=== PATIENT | female | born 1975 | race Caucasian/White ===

== ENCOUNTER 2018-07-09 15:30 | Observation (INO) | payer SELFPAY ==
[2018-07-09] MEDS ORDERED: ASPIRIN 81 MG TABLET, CHEWABLE PO ONE (15:56)
--- NOTE | 2018-07-09 15:58 | ER Document Report ---
ED Medical Screen (RME) - General Chief Complaint: Chest Pain Stated Complaint: CHEST PAIN Time Seen by Provider: 07/09/18 15:51 Notes: 42 years old female presents today with chest wall pain particularly over the right side of the chest wall for the last 2-3 weeks more so today. Radiating to the right side of the neck and left shoulder pain left arm numbness. Denies any history of anxiety, denies any stress. Chest wall tenderness noted at the right lower costosternal region TRAVEL OUTSIDE OF THE [place] IN LAST 30 DAYS: No - Related Data Allergies/Adverse Reactions: No Known Allergies Allergy (Verified 07/09/18 15:31) Past Medical History - Social History Frequency of alcohol use: None Drug Abuse: None - Past Medical History Cardiac Medical History: Reports: Hx Hypertension Renal/ Medical History: Denies: Hx Peritoneal Dialysis Past Surgical History: Reports: Hx Hysterectomy Physical Exam - Vital signs Vitals: Temp Pulse Resp BP Pulse Ox 98.6 F 109 H 16 144/84 H 99 07/09/18 15:45 07/09/18 15:45 07/09/18 15:45 07/09/18 15:45 07/09/18 15:45 Course - Vital Signs Vital signs: Temp Pulse Resp BP Pulse Ox 98.6 F 109 H 16 144/84 H 99 07/09/18 15:45 07/09/18 15:45 07/09/18 15:45 07/09/18 15:45 07/09/18 15:45 Doctor's Discharge - Discharge Referrals: LOCALMD,NO [Primary Care Provider] - Follow up as needed
--- NOTE | 2018-07-09 16:28 | RADIOLOGY REPORT (SQ) ---
EXAM DESCRIPTION: CHEST SINGLE VIEW COMPLETED DATE/TIME: 07/09/2018 4:18 pm REASON FOR STUDY: Chest pain COMPARISON: None. EXAM PARAMETERS: NUMBER OF VIEWS: One view. TECHNIQUE: Single frontal radiographic view of the chest acquired. RADIATION DOSE: NA LIMITATIONS: None. FINDINGS: LUNGS AND PLEURA: No opacities, masses or pneumothorax. No pleural effusion. MEDIASTINUM AND HILAR STRUCTURES: No masses. Contour normal. HEART AND VASCULAR STRUCTURES: Heart normal in size. Normal vasculature. BONES: Scoliosis. HARDWARE: None in the chest. OTHER: No other significant finding. IMPRESSION: Scoliosis. No acute findings in the chest. TECHNICAL DOCUMENTATION: JOB ID: [id number] [email or web address]- All Rights Reserved Reading location - IP/workstation name: [email or web address]
[2018-07-09 16:38] LABS: ABSOLUTE BASOPHILS # (AUTO) 0.1 10^3/uL (0.0-0.2); ABSOLUTE EOSINOPHILS # (AUTO) 0.1 10^3/uL (0.0-0.6); ABSOLUTE LYMPHOCYTES (AUTO) 3.4 10^3/uL (0.5-4.7); ABSOLUTE MONOCYTES (AUTO) 0.5 10^3/uL (0.1-1.4); ABSOLUTE NEUT (AUTO) 5.8 10^3/uL (1.7-8.2); BASOPHILS % (AUTO) 0.9 % (0-2); EOSINOPHILS % (AUTO) 0.8 % (0-6); HEMATOCRIT 43.3 % (36.0-47.0); HEMOGLOBIN 15.2 g/dL (12.0-15.5); LYMPHOCYTES % (AUTO) 34.4 % (13-45); MEAN CORPUSCULAR HGB CONC 35.1 g/dL (32.0-36.0); MEAN CORPUSCULAR VOLUME 97 fl (80-97); PLATELET COUNT 330 10^3/uL (150-450); RED BLOOD COUNT 4.48 10^6/uL (3.72-5.28); RED CELL DISTRIBUTION WIDTH 13.3 % (11.5-14.0); SEGMENTED NEUTROPHILS % (AUTO) 58.9 % (42-78); TOTAL CELLS COUNTED % (AUTO) 100 %; WHITE BLOOD COUNT 9.9 10^3/uL (4.0-10.5)
[2018-07-09 17:00] LABS: ALANINE AMINOTRANSFERASE 35 U/L (9-52); ALBUMIN 4.8 g/dL (3.5-5.0); ALKALINE PHOSPHATASE 69 U/L (38-126); ANION GAP 14 (5-19); ASPARTATE AMINO TRANSFERASE 31 U/L (14-36); BILIRUBIN,DIRECT 0.2 mg/dL (0.0-0.4); BILIRUBIN,TOTAL 0.4 mg/dL (0.2-1.3); BLOOD UREA NITROGEN 13 mg/dL (7-20); CALCIUM 9.8 mg/dL (8.4-10.2); CARBON DIOXIDE 28 mmol/L (22-30); CHLORIDE 102 mmol/L (98-107); CREATINE KINASE 90 U/L (30-135); GLUCOSE 83 mg/dL (75-110); POTASSIUM 4.2 mmol/L (3.6-5.0); SODIUM 144.1 mmol/L (137-145); TOTAL PROTEIN 7.8 g/dL (6.3-8.2)
[2018-07-09 17:11] LABS: CREATINE KINASE MB 1.64 ng/mL (<4.55)
[2018-07-09 17:17] LABS: TROPONIN I 0.07 ng/mL
--- NOTE | 2018-07-09 18:54 | ER Document Report ---
ED General - General Chief Complaint: Chest Pain Stated Complaint: CHEST PAIN Time Seen by Provider: 07/09/18 15:51 Mode of Arrival: Ambulatory Information source: Patient Notes: 42-year-old female with past medical history of Lyme disease in spring 2017 presents to the emergency department for chest pain that radiates to her right jaw that started approximately a week ago but became severe last night. She endorses a dull squeezing pain that starts in the middle of her chest moves to her right jaw, comes and goes and lasts for a few seconds at a time. She states at work past Friday she became diaphoretic and lightheaded, and this is happened a couple of times since. Last night she said she could not catch her breath in bed she was having the same symptoms she got up got lightheaded and went downstairs. Patient denies fevers, chills, dyspnea, nausea, or any other recent illness. She is an every day smoker approximately 1/2 pack/day for years. TRAVEL OUTSIDE OF THE [place] IN LAST 30 DAYS: No - HPI Onset: Last week - Related Data Allergies/Adverse Reactions: No Known Allergies Allergy (Verified 07/09/18 15:31) Past Medical History - General Information source: Patient - Social History Smoking Status: Current Every Day Smoker Frequency of alcohol use: None Drug Abuse: None Family History: Hypertension - Parents Patient has suicidal ideation: No Patient has homicidal ideation: No - Medical History Medical History: Negative - Past Medical History Cardiac Medical History: Reports: Hx Hypertension Renal/ Medical History: Denies: Hx Peritoneal Dialysis Past Surgical History: Reports: Hx Hysterectomy Physical Exam - Vital signs Vitals: Temp Pulse Resp BP Pulse Ox 98.6 F 109 H 16 144/84 H 99 07/09/18 15:45 07/09/18 15:45 07/09/18 15:45 07/09/18 15:45 07/09/18 15:45 - Notes Notes: Reviewed vital signs and nursing note as charted by RN. CONSTITUTIONAL: Well-appearing, well-nourished, acting appropriately for age HEAD: Normocephalic, atraumatic, no swelling EYES: PERRL, Conjunctivae clear, no drainage, EOMI, no scleral icterus ENT: External ears without lesions, External auditory canal is patent, airway patent, mucous membranes pink and moist NECK: Supple, no cervical lymphadenopathy, no masses CARD: Regular rate and rhythm, no murmurs, no rubs, no gallops, capillary refill < 2 seconds, symmetric pulses RESP: The lungs are clear to auscultation bilaterally, no wheezing, no rales, no rhonchi. Respiratory rate and effort are normal, normal chest excursion. No respiratory distress, no retractions, no stridor, no nasal flaring, no accessory muscle use. ABD/GI: Normal bowel sounds, non-distended, soft, non-tender, no rebound, no guarding, no palpable organomegaly EXT: Normal ROM in all joints, non-tender to palpation, no effusions, no edema SKIN: Normal color for age and race, warm, dry, good turgor, no acute lesions noted NEURO: No facial asymmetry, moves all extremities equally, motor and sensory function intact Course - Re-evaluation Re-evalutation: 07/09/18 19:[address] Goncalves. 42-year-old female with substernal chest pain that radiates to her right neck that is transient in nature for the last 3-4 days. She does endorse diaphoresis at work on Friday and lightheadedness that occurs with these episodes, last episode last night. Last night she was laying in bed and the chest pain was more severe which concerned her prompting her to seek treatment. Initial troponin 0 0.07, repeat troponin pending. EKG showed specific T wave abnormalities in inferior leads II, III and aVF, with some ST depression in lateral precordial leads. Heart score of 4. Plan to call the hospitalist for observation for ACS rule out. 07/09/18 19:[address] Beckford the hospitalist. Discussed request for admission for ACS rule out. He states he wanted to see what the second troponin resulted as before making a decision. 07/09/18 21:05 Dr. Beckford agreed to accept the patient. Second troponin 0.073. - Vital Signs Vital signs: Temp Pulse Resp BP Pulse Ox 98.6 F 109 H 12 135/88 H 99 07/09/18 15:45 07/09/18 15:45 07/09/18 20:01 07/09/18 20:01 07/09/18 20:01 - Laboratory Result Diagrams: 07/09/18 16:26 07/09/18 16:26 Laboratory results interpreted by me: 07/09/18 16:26 MCH 34.0 H Discharge - Discharge Clinical Impression: Chest pain Qualifiers: Chest pain type: unspecified Qualified Code(s): R07.9 - Chest pain, unspecified Disposition: ADMITTED OBSERVATION Admitting Provider: Hospitalist Unit Admitted: Telemetry
[2018-07-09] MEDS ORDERED: LACTULOSE SYRUP 20 GM/30 ML UDCUP PO ONE (19:35)
[2018-07-09] MEDS ORDERED: MAG HYDROX/AL HYDROX/SIMETH SUSP 30 ML UDCUP PO PRN (19:36)
[2018-07-09] MEDS ORDERED: NITROGLYCERIN 0.4 MG/TAB 25 TAB/BOTTLE SL PRN (19:36)
[2018-07-09 20:46] LABS: CREATINE KINASE MB 1.23 ng/mL (<4.55); TROPONIN I 0.073 ng/mL
[2018-07-09] MEDS ORDERED: ATORVASTATIN CALCIUM 80 MG TABLET PO SCH (22:00)
[2018-07-09] MEDS: NICOTINE 14 MG/24 HR PATCH.TD24 TD SCH (22:04)
--- NOTE | 2018-07-09 22:38 | EKG REPORT ---
SEVERITY:- ABNORMAL ECG - SINUS TACHYCARDIA PROBABLE LEFT ATRIAL ABNORMALITY CONSIDER RIGHT VENTRICULAR HYPERTROPHY BORDERLINE INFERIOR Q WAVES ABNORMAL T, CONSIDER ISCHEMIA, DIFFUSE LEADS : Confirmed by: Poly Edouard 09-Jul-2018 22:38:26
[2018-07-10 02:27] LABS: CREATINE KINASE MB 1.03 ng/mL (<4.55); TROPONIN I 0.072 ng/mL
--- NOTE | 2018-07-10 06:14 | PDOC H&P ---
History of Present Illness Admission Date/PCP: 07/09/18 19:49 Patient complains of: Chest pain radiating to the jaw History of Present Illness: ESPERAZNA GREGG is a 42 year old female with a past medical history of hypertension and tobacco dependence. Presenting with 2 weeks of increasing frequency and intensity of 3 out of 5 midsternal crescendo pressure pain radiating to the jaw occurring with exertion. It is associated with shortness of breath and diaphoresis, no palpitations. She is unable to identify alleviating factors besides rest exacerbating factors appear to be exertion. Initially patient had episodes once a day now is occurring several times a day she denies GERD or anxiety. Currently pain-free with an indeterminate troponin and referred to the hospitalist for admission. Past Medical History Cardiac Medical History: Reports: Hypertension Past Surgical History Past Surgical History: Reports: Hysterectomy Social History Information Source: Patient Lives with: Spouse/Significant other Smoking Status: Current Every Day Smoker Frequency of Alcohol Use: Rare Drugs: None - Advance Directive Resuscitation Status: Full Code Family History Family History: Hypertension - Parents Parental Family History Reviewed: Yes Children Family History Reviewed: Yes Sibling(s) Family History Reviewed.: Yes Medication/Allergy Home Medications: No Home Medications 07/09/18 Allergies/Adverse Reactions: No Known Allergies Allergy (Verified 07/09/18 15:31) Review of Systems Constitutional: ABSENT: chills, fever(s), headache(s), weight gain, weight loss Eyes: ABSENT: visual disturbances Ears: ABSENT: hearing changes Cardiovascular: ABSENT: chest pain, dyspnea on exertion, edema, orthropnea, palpitations Respiratory: ABSENT: cough, hemoptysis Gastrointestinal: ABSENT: abdominal pain, constipation, diarrhea, hematemesis, hematochezia, nausea, vomiting Genitourinary: ABSENT: dysuria, hematuria Musculoskeletal: ABSENT: joint swelling Integumentary: ABSENT: rash, wounds Neurological: ABSENT: abnormal gait, abnormal speech, confusion, dizziness, focal weakness, syncope Psychiatric: ABSENT: anxiety, depression, homidical ideation, suicidal ideation Endocrine: ABSENT: cold intolerance, heat intolerance, polydipsia, polyuria Hematologic/Lymphatic: ABSENT: easy bleeding, easy bruising Physical Exam Vital Signs: Temp Pulse Resp BP Pulse Ox 97.9 F 80 18 118/73 97 07/10/18 04:12 07/10/18 04:12 07/10/18 04:12 07/10/18 04:12 07/10/18 04:12 Intake & Output 07/08/18 07/09/18 07/10/18 11:59 11:59 11:59 Weight 63.1 kg General appearance: PRESENT: no acute distress, well-developed, well-nourished Head exam: PRESENT: atraumatic, normocephalic Eye exam: PRESENT: conjunctiva pink, EOMI, PERRLA. ABSENT: scleral icterus Ear exam: PRESENT: normal external ear exam Mouth exam: PRESENT: moist, tongue midline Neck exam: ABSENT: carotid bruit, JVD, lymphadenopathy, thyromegaly Respiratory exam: PRESENT: clear to auscultation jakob. ABSENT: rales, rhonchi, wheezes Cardiovascular exam: PRESENT: RRR. ABSENT: diastolic murmur, rubs, systolic murmur Pulses: PRESENT: normal dorsalis pedis pul Vascular exam: PRESENT: normal capillary refill GI/Abdominal exam: PRESENT: normal bowel sounds, soft. ABSENT: distended, guarding, mass, organolmegaly, rebound, tenderness Rectal exam: PRESENT: deferred Extremities exam: PRESENT: full ROM. ABSENT: calf tenderness, clubbing, pedal edema Neurological exam: PRESENT: alert, awake, oriented to person, oriented to place , oriented to time, oriented to situation, CN II-XII grossly intact. ABSENT: motor sensory deficit Psychiatric exam: PRESENT: appropriate affect, normal mood. ABSENT: homicidal ideation, suicidal ideation Skin exam: PRESENT: dry, intact, warm. ABSENT: cyanosis, rash Results Laboratory Results: 07/09/18 07/10/18 20:08 01:50 CK-MB (CK-2) 1.23 1.03 Troponin I 0.073 0.072 Impressions: Chest X-Ray 07/09/18 15:56 IMPRESSION: Scoliosis. No acute findings in the chest. Assessment & Plan - Diagnosis (1) Chest pain Qualifiers: Chest pain type: unspecified Qualified Code(s): R07.9 - Chest pain, unspecified Is this a current diagnosis for this admission?: Yes Plan: there are multiple risk factors for coronary artery disease and subsequently will observe and evaluation of acute coronary syndrome versus coronary artery disease with anginal equivalents versus esophageal spasm. Cardiac monitoring blood pressure Q6 hours ,TSH, lipid profile, serial cardiac enzymes and treadmill cardiac stress test (2) Hypertension Is this a current diagnosis for this admission?: Yes Plan: ESAU inhibitor and nitrates as needed (3) Tobacco abuse Is this a current diagnosis for this admission?: Yes Plan: Tobacco Dependence patient received tobacco cessation counseling and offered nicotine replacement options - Time Time Spent: 30 to 50 Minutes
[2018-07-10 08:52] LABS: CHOLESTEROL 240.29 mg/dL (0-200); CREATINE KINASE 56 U/L (30-135); TRIGLYCERIDES 117 mg/dL (<150)
[2018-07-10 09:04] LABS: DIRECT LDL 160 mg/dL (<100)
[2018-07-10 09:05] LABS: CREATINE KINASE MB 0.82 ng/mL (<4.55); TROPONIN I 0.058 ng/mL
[2018-07-10] MEDS: NICOTINE 14 MG/24 HR PATCH.TD24 TD SCH (09:31)
--- NOTE | 2018-07-10 09:39 | EKG REPORT ---
SEVERITY:- ABNORMAL ECG - SINUS RHYTHM LEFT ATRIAL ABNORMALITY CONSIDER RVH W/ SECONDARY REPOL ABNORMALITY VS IRBBB NONSPECIFIC T ABNORMALITIES, LATERAL LEADS : Confirmed by: Poly Edouard 10-Jul-2018 09:39:02
[2018-07-10] MEDS ORDERED: NITROGLYCERIN/D5W 50 MG/250 ML RTUINJ IV ONE (11:06)
[2018-07-10] MEDS ORDERED: ASPIRIN 325 MG TABLET ONE (11:17)
[2018-07-10] MEDS ORDERED: NITROGLYCERIN 50 MG/D5W 250 ML IV PRN (11:17)
[2018-07-10] MEDS ORDERED: ASPIRIN 325 MG TABLET PO ONE (12:00)
--- NOTE | 2018-07-10 12:10 | PDOC TRANSFER SUMMARY ---
General Admission Date/PCP: 07/09/18 19:49 Resuscitation Status: Full Code - Transfer Diagnosis (1) Chest pain Is this a current diagnosis for this admission?: Yes (2) Abnormal stress test Is this a current diagnosis for this admission?: Yes - Transfer Medications Home Medications: No Home Medications 07/09/18 Transfer Medications: Current Medications Al Hydrox/Mg Hydrox/Simethicone (Maalox Plus Susp 30 Udcup) 30 ml PO Q4HP PRN PRN Reason: HEARTBURN Stop: 08/08/18 19:35 Atorvastatin Calcium (Lipitor 80 Mg Tablet) 80 mg PO QHS JAMILA Stop: 08/08/18 21:59 Last Admin: 07/09/18 22:06 Dose: 80 mg Nitroglycerin/Dextrose (Ntg Rtu 50 Mg/D5w 250 Ml Iv Premix Bottle) 50 mg in 250 mls @ 0 mls/hr IV CONTINUOUS PRN; Protocol; Titrate PRN Reason: THIS MED IS NOT "PRN" Stop: 08/09/18 11:16 Last Admin: 07/10/18 11:57 Dose: 3 mls/hr, 3 mls/hr Influenza Virus Vaccine Quadrival (Fluarix Adlt Quad Vac 0.5 Ml Syr) 0.5 ml IM .DISCHARGE PRN PRN Reason: THIS MED IS NOT "PRN" Stop: 08/09/18 00:11 Nicotine (Nicoderm 14 Mg/24 Hr Transdermal Patch) 1 each TD DAILY [facility] Stop: 08/08/18 21:44 Last Admin: 07/10/18 09:31 Dose: Not Given Nitroglycerin (Nitrostat 0.4 Mg (1/150 Gr) Tabs 25/Bottle) 1 tab SL Q5MP PRN PRN Reason: FOR CHEST PAIN Sodium Chloride (Saline Flush 2.5 Ml Monoject Prefil Syrin) 2.5 ml IV Q8 [facility] Stop: 08/08/18 21:59 Last Admin: 07/10/18 05:11 Dose: Not Given - Allergies Allergies/Adverse Reactions: No Known Allergies Allergy (Verified 07/09/18 15:31) Hospital Course Hospital Course: ESPERANZA GREGG is a 42 year old female with a past medical history of hypertension and tobacco dependence. Presenting with 2 weeks of increasing frequency and intensity of 3 out of 5 midsternal crescendo pressure pain radiating to the jaw occurring with exertion. It is associated with shortness of breath and diaphoresis, no palpitations. She is unable to identify alleviating factors besides rest exacerbating factors appear to be exertion. Troponin was mildly elevated at 0.073 and EKG shows RBBB pattern. Stress test was done and came back abnormal. 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 Rocio Orona has accepted patient for cardiac catheterization. Physical Exam Vital Signs: Temp Pulse Resp BP Pulse Ox 98.1 F 73 16 118/75 98 07/10/18 07:58 07/10/18 07:58 07/10/18 07:58 07/10/18 07:58 07/10/18 07:58 Intake & Output 07/09/18 07/10/18 07/11/18 06:59 06:59 06:59 Weight 139 lb 1.787 oz General appearance: PRESENT: no acute distress, well-developed, well-nourished Head exam: PRESENT: atraumatic, normocephalic Eye exam: PRESENT: conjunctiva pink, EOMI, PERRLA. ABSENT: scleral icterus Ear exam: PRESENT: normal external ear exam Mouth exam: PRESENT: moist, tongue midline Neck exam: ABSENT: carotid bruit, JVD, lymphadenopathy, thyromegaly Respiratory exam: PRESENT: clear to auscultation jakob. ABSENT: rales, rhonchi, wheezes Pulses: PRESENT: normal dorsalis pedis pul GI/Abdominal exam: PRESENT: normal bowel sounds, soft. ABSENT: distended, guarding, mass, organolmegaly, rebound, tenderness Rectal exam: PRESENT: deferred Extremities exam: PRESENT: full ROM. ABSENT: calf tenderness, clubbing, pedal edema Neurological exam: PRESENT: alert, awake, oriented to person, oriented to place , oriented to time, oriented to situation, CN II-XII grossly intact. ABSENT: motor sensory deficit Results Laboratory Results: 07/10/18 08:17 Triglycerides 117 Cholesterol 240.29 H LDL Cholesterol Direct 160 H VLDL Cholesterol 23.0 HDL Cholesterol 60 07/09/18 07/10/18 07/10/18 20:08 01:50 08:17 Creatine Kinase 56 CK-MB (CK-2) 1.23 1.03 Troponin I 0.073 0.072 07/10/18 08:17 Creatine Kinase CK-MB (CK-2) 0.82 Troponin I 0.058 Impressions: Chest X-Ray 07/09/18 15:56 IMPRESSION: Scoliosis. No acute findings in the chest.
[2018-07-10] MEDS ORDERED: NITROGLYCERIN 0.4 MG/TAB 25 TAB/BOTTLE ONE (12:27)
[2018-07-10 12:36] VITALS: BP 117/86
[2018-07-10 13:23] LABS: INTERNATIONAL RATION (INR) 0.89; PROTHROMBIN TIME 12.5 SEC (11.4-15.4)
[2018-07-10 13:24] LABS: PARTIAL THROMBOPLASTIN TIME 29.7 SEC (23.5-35.8)
--- NOTE | 2018-07-10 17:46 | DRAGON STRESS TEST REPORT ---
Exercise EKG treadmill stress test. Data procedure: 07/10/2018. Ordering Provider: Dr. Jaycob Beckford. PATIENT STATUS: IN PATIENT. Indication: Chest pain. Coronary risk factors:. Age, hyperlipidemia, and tobacco abuse disorder. Significant physical findings prior to stress testing show a blood pressure of 126/83 and a heart rate of 98 beat per minute. Auscultation of the heart shows normal S1 and S2.NoS3 or S4 gallops. Systolic murmur in the left sternal border and apex. Lungs are clear to auscultation and percussion. Resting 12-lead EKG:. Sinus Rhythm. Right atrial enlargement. Diffuse nonspecific ST-T changes, and T inversion in leads III and aVF Procedure: The patient was excised on a standard [facility]ryan protocol. . The patient exercised only for 2 minutes and 52 seconds. She achieved a workload of 4.60 METs. She exercised to a maximum heart rate of 151 bpm which was 85% of maximum heart rate predicted for age age. At a heart rate of 141 bpm, and into 2 minutes and 25 seconds into exercise the patient complained of chest pressure radiating to her neck. This increased to 3 /5 intensity of chest pain. There were beginnings of ST depression i in the EKG at this time.. At peak exercise there is [address] segment depression in leads V2, V3, V4, V5. The patient continued to have chest pain in recovery, which subsided after the second nitroglycerin given sublingually after 5 minutes after the first sublingual nitroglycerin was given. The ST segment depression persisted in recovery for at least [address] segment depression was suggestive of true posterior wall injury suspicious for a circumflex lesion. Exercise EKG's significant/strongly positive EKG evidence of exercise-induced myocardial ischemia.. Arrhythmias seen:None. The blood pressure response was hypertensive. At peak exercise the blood pressure was 145/100 millimeters of Hg. The double product was K. Summary of findings and interpretation: 1. Clinical symptoms of patient's chest pain symptoms reproduced. 2. There is significant EKG evidence of ischemia in the form of ST segment depression. 3. Hypertensive l blood pressure response. 4. No arrhythmias seen. 5. Poor exercise tolerance, poor aerobic capacity. Diagnostic treadmill stress test strongly positive for ischemia by EKG criteria, at the lower level of exercise. Recommendations: 1. In view of the strongly positive stress test with the patient's symptoms being reproduced. An EKG suggestive of true posterior injury on exercise the patient was admitted to the ICU, and the patient did receive 325 mg of aspirin, and also IV nitroglycerin at 10mcg/min was started. The patient at present was asymptomatic. The EKG ST segments returned to normal. With the baseline ST-T T changes and T changes being the same as prior to the exercise. Contact made with Dr. Rocio Orona of [facility] to have the patient transferred for emergent cardiac catheterization. The findings of the stress test was discussed with the patient and with the patient' s . Also discussed with attending physician on the case.. The patient was transferred to the ICU from the stress test lab on telemetry monitoring. The patient at the time of transfer was very stable without any hemodynamic compromise and with no symptoms of chest pain or discomfort. Aggressive risk factor modification, and treatment of underlying co-morbidities. MTDD
== END 2018-07-10 13:20 | disposition short-term general hospital (02) ==
LOC: ER 15:30 → EH 19:49 → 4S 07-10 → ICU 07-10 11:04
PROVIDERS: ADMIT Internal Medicine; ATTEND Internal Medicine
DX: R07.89 Other chest pain (principal); R94.39 Abnormal result of other cardiovascular function study; I45.10 Unspecified right bundle-branch block; R06.02 Shortness of breath; R61 Generalized hyperhidrosis; F17.210 Nicotine dependence, cigarettes, uncomplicated; I10 Essential (primary) hypertension; R42 Dizziness and giddiness; R20.0 Anesthesia of skin; Z82.49 Family history of ischemic heart disease and other diseases of the circulatory system
CPT/HCPCS: 93005 ×2; 99285; 36415 ×2; 82553 ×2; 82550 ×2; 85025; 85610; 85730; 80053; 84484 ×2; 80061; 93017; 71045; 93010 ×2; G0378 ×2; J3490 ×2

== ENCOUNTER 2020-02-14 16:45 | Emergency (ER) | payer SELFPAY ==
[2020-02-14] MEDS ORDERED: ASPIRIN 81 MG TABLET, CHEWABLE PO ONE (17:17)
--- NOTE | 2020-02-14 17:17 | ER Document Report ---
ED Medical Screen (RME) - General Chief Complaint: Chest Pain Stated Complaint: ARM/BACK PAIN Time Seen by Provider: 02/14/20 17:12 Primary Care Provider: MARY BROWN MD [Primary Care Provider] - Follow up as needed Notes: HPI: 44-year-old female with history of 4 cardiac stents done in [place] presenting for intermittent left chest pressure and discomfort over the last 2 to 3 days may last for a minute at a time with some shortness of breath. Reports some pain and discomfort into the left upper back, left arm today with the onset of chest discomfort. Took 1 baby aspirin this morning. PHYSICAL EXAMINATION: Lung sounds are clear to auscultation regular rate and rhythm. No reproducible pain on palpation of the chest wall I have greeted and performed a rapid initial assessment of this patient. A c omprehensive ED assessment and evaluation of the patient, analysis of test results and completion of medical decision making process will be conducted by an additional ED providers. TRAVEL OUTSIDE OF THE [place] IN LAST 30 DAYS: No - Related Data Allergies/Adverse Reactions: No Known Allergies Allergy (Verified 07/09/18 15:31) Home Medications: losartan, ntg, cholesterol, BP med Past Medical History - Social History Frequency of alcohol use: None Drug Abuse: None - Past Medical History Cardiac Medical History: Reports: Hx Coronary Artery Disease, Hx Hypercholesterolemia, Hx Hypertension Denies: Hx Heart Attack Pulmonary Medical History: Denies: Hx Asthma, Hx COPD Neurological Medical History: Denies: Hx Seizures Endocrine Medical History: Denies: Hx Diabetes Mellitus Type 1, Hx Diabetes Mellitus Type 2, Hx Hyperthyroidism, Hx Hypothyroidism Renal/ Medical History: Denies: Hx Peritoneal Dialysis GI Medical History: Denies: Hx Cirrhosis, Hx Crohn's Disease, Hx Hepatitis, Hx Ulcerative Colitis Musculoskeltal Medical History: Denies Hx Arthritis, Denies Hx Fibromyalgia Skin Medical History: Denies Hx Eczema, Denies Hx Psoriasis Infectious Medical History: Denies: Hx Hepatitis Past Surgical History: Reports: Hx Cardiac Catheterization, Hx Cardiac Surgery - x4 stents in 2018, Hx Coronary Stent - X4, Hx Hysterectomy Physical Exam - Vital signs Vitals: Temp Pulse Resp BP Pulse Ox 98.2 F 81 18 155/85 H 99 02/14/20 17:00 02/14/20 17:00 02/14/20 17:00 02/14/20 17:00 02/14/20 17:00 Course - Vital Signs Vital signs: Temp Pulse Resp BP Pulse Ox 98.2 F 81 18 155/85 H 99 02/14/20 17:00 02/14/20 17:00 02/14/20 17:00 02/14/20 17:00 02/14/20 17:00 Doctor's Discharge - Discharge Referrals: MARY BROWN MD [Primary Care Provider] - Follow up as needed
--- NOTE | 2020-02-14 17:34 | RADIOLOGY REPORT (SQ) ---
EXAM DESCRIPTION: CHEST SINGLE VIEW IMAGES COMPLETED DATE/TIME: 02/14/2020 5:26 pm REASON FOR STUDY: chest pain COMPARISON: 07/14/2019 EXAM PARAMETERS: NUMBER OF VIEWS: One view. TECHNIQUE: Single frontal radiographic view of the chest acquired. RADIATION DOSE: NA LIMITATIONS: None. FINDINGS: LUNGS AND PLEURA: No opacities, masses or pneumothorax. No pleural effusion. MEDIASTINUM AND HILAR STRUCTURES: No masses. Contour normal. HEART AND VASCULAR STRUCTURES: Heart normal in size. Normal vasculature. BONES: S shaped scoliosis thoracolumbar spine. Hypoplastic left first anterior rib. HARDWARE: None in the chest. OTHER: No other significant finding. IMPRESSION: 1. No significant interval changes since the prior examination dated 07/14/2019. No ac byron findings. TECHNICAL DOCUMENTATION: JOB ID: [id number] [email or web address]- All Rights Reserved Reading location - IP/workstation name: [email or web address]
[2020-02-14 17:35] LABS: ABSOLUTE EOSINOPHILS # (AUTO) 0.1 10^3/uL (0.0-0.6); ABSOLUTE MONOCYTES (AUTO) 0.5 10^3/uL (0.1-1.4); ABSOLUTE NEUT (AUTO) 4.9 10^3/uL (1.7-8.2); BASOPHILS % (AUTO) 0.5 % (0-2); EOSINOPHILS % (AUTO) 1.2 % (0-6); HEMATOCRIT 39.1 % (36.0-47.0); HEMOGLOBIN 13.3 g/dL (12.0-15.5); LYMPHOCYTES % (AUTO) 26.5 % (13-45); MEAN CORPUSCULAR HEMOGLOBIN 33.2 pg (27.0-33.4); MEAN CORPUSCULAR HGB CONC 34.1 g/dL (32.0-36.0); MEAN CORPUSCULAR VOLUME 98 fl (80-97); MONOCYTES % (AUTO) 7.2 % (3-13); PLATELET COUNT 258 10^3/uL (150-450); RED BLOOD COUNT 4.01 10^6/uL (3.72-5.28); RED CELL DISTRIBUTION WIDTH 13.3 % (11.5-14.0); SEGMENTED NEUTROPHILS % (AUTO) 64.6 % (42-78); TOTAL CELLS COUNTED % (AUTO) 100 %; WHITE BLOOD COUNT 7.6 10^3/uL (4.0-10.5)
[2020-02-14 17:52] LABS: ALBUMIN 4.5 g/dL (3.5-5.0); ALKALINE PHOSPHATASE 66 U/L (38-126); ANION GAP 7 (5-19); ASPARTATE AMINO TRANSFERASE 42 U/L (14-36); BILIRUBIN,TOTAL 0.4 mg/dL (0.2-1.3); BLOOD UREA NITROGEN 13 mg/dL (7-20); CALCIUM 9.3 mg/dL (8.4-10.2); CARBON DIOXIDE 23 mmol/L (22-30); CHLORIDE 108 mmol/L (98-107); GLUCOSE 106 mg/dL (75-110); POTASSIUM 3.9 mmol/L (3.6-5.0); TOTAL PROTEIN 7.5 g/dL (6.3-8.2)
--- NOTE | 2020-02-14 19:59 | ER Document Report ---
ED General - General Chief Complaint: Chest Pain Stated Complaint: ARM/BACK PAIN Time Seen by Provider: 02/14/20 17:12 Primary Care Provider: MARY BROWN MD [NO LOCAL MD] - Follow up as needed TRAVEL OUTSIDE OF THE [place] IN LAST 30 DAYS: No - HPI Notes: Patient is a 44-year-old female who presents to the emergency department for evaluation of intermittent left arm and chest pain. She states over the last 3 or 4 days she has been having sharp intermittent chest pain that lasts only a second. Nothing seems to bring it on, nothing seems to make it better. She also states she has had some other left arm pain. Is not always associated with the chest pain. She describes it as a dull ache. It lasts about an hour. None of it is brought about by exertion. It seems to happen more frequently at night. Occasionally she has some palpitations. In the past when the patient has had angina, she had a heavy burning chest pain that radiated up into the neck. She is not having symptoms similar to that. Patient does follow with cardiology. She has been taking her medications as prescribed. - Related Data Allergies/Adverse Reactions: No Known Allergies Allergy (Verified 07/09/18 15:31) Home Medications: losartan, ntg, statin Past Medical History - General Information source: Patient - Social History Smoking Status: Former Smoker Frequency of alcohol use: None Drug Abuse: None Family History: CAD, Hypertension - Parents. denies: CVA, DM, Malignancy - Past Medical History Cardiac Medical History: Reports: Hx Coronary Artery Disease, Hx Hypercholesterolemia, Hx Hypertension Denies: Hx Heart Attack Pulmonary Medical History: Denies: Hx Asthma, Hx COPD Neurological Medical History: Denies: Hx Seizures Endocrine Medical History: Denies: Hx Diabetes Mellitus Type 1, Hx Diabetes Mellitus Type 2, Hx Hyperthyroidism, Hx Hypothyroidism Renal/ Medical History: Denies: Hx Peritoneal Dialysis GI Medical History: Denies: Hx Cirrhosis, Hx Crohn's Disease, Hx Hepatitis, Hx Ulcerative Colitis Musculoskeletal Medical History: Denies Hx Arthritis, Denies Hx Fibromyalgia Skin Medical History: Denies Hx Eczema, Denies Hx Psoriasis Infectious Medical History: Denies: Hx Hepatitis Past Surgical History: Reports: Hx Cardiac Catheterization, Hx Section, Hx Coronary Stent - X4, Hx Hysterectomy Review of Systems - Review of Systems Cardiovascular: See HPI Musculoskeletal: See HPI -: Yes All other systems reviewed and negative Physical Exam - Vital signs Vitals: Temp Pulse Resp BP Pulse Ox 98.2 F 81 18 155/85 H 99 02/14/20 17:00 02/14/20 17:00 02/14/20 17:00 02/14/20 17:00 02/14/20 17:00 - Notes Notes: Vital signs reviewed, please refer to chart. Head is normocephalic, atraumatic. Pupils equal round, reactive to light. Neck is supple without meningismus. Heart is regular rate and rhythm. Lungs are clear to auscultation bilaterally. No abnormality noted to chest wall, chest wall is nontender. Abdomen is soft, nontender, normoactive bowel sounds throughout. Extremities without cyanosis, clubbing. Posterior calves are nontender. Peripheral pulses are equal. Skin is warm and dry. Patient is awake, alert, neurological exam is nonfocal. Course - Re-evaluation Re-evalutation: 02/14/20 19:56 Patient presents to the emergency department for evaluation of chest pain. She is placed on a monitoring manager. Laboratory investigations are ordered as through triage. She was initially markedly hypertensive but this improved without any sort of intervention. Her laboratory investigations revealed a completely undetectable troponin x1. Her pain is atypical. She Erick has cardiology follow-up. She has been taking her medications as prescribed. Assuming a second undetectable troponin, I do believe that outpatient follow-up is reasonable. She is to call her knowledge management consultant first thing in the morning. She is to report that she was seen in the emergency department for chest pain, and it was recommended that she discuss a possible stress test and follow-up. Further intervention and treatment is to be determined by her knowledge management consultant. Currently patient is chest pain-free. She has no pulmonary embolism risk factors. Her posterior calves are nontender. She is currently stable, we will continue to monitor. 02/14/20 21:25 Repeat troponin is undetectable. Patient is chest pain-free. She is to follow- up with her knowledge management consultant, call them in the morning for close follow-up. She and voices understanding to the importance of this and is discharged. - Vital Signs Vital signs: Temp Pulse Resp BP Pulse Ox 98.2 F 81 16 160/97 H 98 02/14/20 17:00 02/14/20 17:00 02/14/20 18:02 02/14/20 18:02 02/14/20 18:02 - Laboratory Result Diagrams: 02/14/20 17:02 02/14/20 17:02 Laboratory results interpreted by me: 02/14/20 02/14/20 17:02 17:02 MCV 98 H Chloride 108 H AST 42 H ALT 47 H - Diagnostic Test Radiology results interpreted by me: 02/14/20 19:59 Chest X-Ray 02/14/20 17:16 IMPRESSION: 1. No significant interval changes since the prior examination dated 07/14/2019. No acute findings. - EKG Interpretation by Me Additional EKG results interpreted by me: 02/14/20 19:59 Sinus mechanism with a rate of 80 bpm. Normal axis and intervals. Incomplete right bundle branch block. No change when compared to prior study of July 14, 2019. Discharge - Discharge Clinical Impression: Chest pain Qualifiers: Chest pain type: unspecified Qualified Code(s): R07.9 - Chest pain, unspecified Condition: Stable Disposition: HOME, SELF-CARE Instructions: Chest Pain of Unclear Cause ([facility]) Additional Instructions: No clear cause was identified for your chest pain today. You had 2- troponins. Please note this does not mean that your heart is healthy, and you should follow-up closely with your knowledge management consultant. Contact them tomorrow morning for further testing and close follow-up. Return to the emergency department if you develop worsening or new concerning symptoms of any sort. Referrals: MARY BROWN MD [NO LOCAL MD] - Follow up as needed
[2020-02-14 21:29] VITALS: BP 156/90
--- NOTE | 2020-02-15 14:31 | EKG REPORT ---
SEVERITY:- BORDERLINE ECG - SINUS RHYTHM PROBABLE LEFT ATRIAL ABNORMALITY BORDERLINE INFERIOR Q WAVES : Confirmed by: Sudheer Cortez MD 15-Feb-2020 14:30:23
== END 2020-02-14 21:43 | disposition home or self-care (01) ==
LOC: ER 16:45
DX: R07.9 Chest pain, unspecified (principal); I25.10 Atherosclerotic heart disease of native coronary artery without angina pectoris; E78.00 Pure hypercholesterolemia, unspecified; I10 Essential (primary) hypertension; Z90.710 Acquired absence of both cervix and uterus
CPT/HCPCS: 36415; 71045; 80053; 84484; 85025; 93005; 93010; 99285

== ENCOUNTER 2020-07-21 15:10 | Emergency (ER) | payer SELFPAY ==
[2020-07-21] MEDS ORDERED: ASPIRIN 81 MG TABLET, CHEWABLE PO ONE (15:41)
--- NOTE | 2020-07-21 15:42 | ER Document Report ---
ED Medical Screen (RME) - General Stated Complaint: CHEST PAIN Time Seen by Provider: 07/21/20 15:37 Mode of Arrival: Ambulatory Notes: Patient is a 44-year-old female comes emergency room complaint of anterior chest pain and discomfort. Patient states her pain started yesterday and has progressively gotten worse. She is also complaining of the radiation to her neck anteriorly as well as posteriorly and into the mid back between the scapu la. Patient states this is how she felt the last time that she had a heart attack and had a stent placed 2 years ago. She is also had some moderate shortness of breath. Physical examination: Patient is well-nourished well-developed 24-year-old female no apparent distress on examination today. Cardiac: Patient displays regular rate and rhythm without any murmurs auscultated. Lungs: Bilateral breath sounds with breath sounds increased clear to auscultation. Abdomen: Bowel sounds present 4 quads nontender to palpate. We will do the cardiac work-up on patient currently she takes an 81 mg aspirin daily. I have greeted and performed a rapid initial assessment of this patient. A comprehensive ED assessment and evaluation of the patient, analysis of test results and completion of the medical decision making process will be conducted by additional ED providers. Dictation of this chart was performed using voice recognition software; therefore, there may be some unintended grammatical error s. TRAVEL OUTSIDE OF THE [place] IN LAST 30 DAYS: No - Related Data Allergies/Adverse Reactions: No Known Allergies Allergy (Verified 07/09/18 15:31) Past Medical History - Past Medical History Cardiac Medical History: Reports: Hx Coronary Artery Disease, Hx Hyperc holesterolemia, Hx Hypertension Denies: Hx Heart Attack Pulmonary Medical History: Denies: Hx Asthma, Hx COPD Neurological Medical History: Denies: Hx Seizures Endocrine Medical History: Denies: Hx Diabetes Mellitus Type 1, Hx Diabetes Mellitus Type 2, Hx Hyperthyroidism, Hx Hypothyroidism Renal/ Medical History: Denies: Hx Peritoneal Dialysis GI Medical History: Denies: Hx Cirrhosis, Hx Crohn's Disease, Hx Hepatitis, Hx Ulcerative Colitis Musculoskeltal Medical History: Denies Hx Arthritis, Denies Hx Fibromyalgia Skin Medical History: Denies Hx Eczema, Denies Hx Psoriasis Infectious Medical History: Denies: Hx Hepatitis Past Surgical History: Reports: Hx Cardiac Catheterization, Hx Cardiac Surgery - x4 stents in 2018, Hx Section, Hx Coronary Stent - X4, Hx Hysterectomy
--- NOTE | 2020-07-21 16:19 | RADIOLOGY REPORT (SQ) ---
EXAM DESCRIPTION: CHEST SINGLE VIEW IMAGES COMPLETED DATE/TIME: 07/21/2020 4:11 pm REASON FOR STUDY: chest pain COMPARISON: 02/14/2020 EXAM PARAMETERS: NUMBER OF VIEWS: One view. TECHNIQUE: Single frontal radiographic view of the chest acquired. RADIATION DOSE: NA LIMITATIONS: None. FINDINGS: LUNGS AND PLEURA: No opacities, masses or pneumothorax. No pleural effusion. MEDIASTINUM AND HILAR STRUCTURES: No masses. Contour normal. HEART AND VASCULAR STRUCTURES: Heart normal in size. Normal vasculature. BONES: No acute findings. HARDWARE: None in the chest. OTHER: No other significant finding. IMPRESSION: NO ACUTE RADIOGRAPHIC FINDING IN THE CHEST. TECHNICAL DOCUMENTATION: JOB ID: [id number] 2010 [employer]- All Rights Reserved Reading location - IP/workstation name: [email or web address]
[2020-07-21 17:48] LABS: ABSOLUTE EOSINOPHILS # (AUTO) 0.1 10^3/uL (0.0-0.6); ABSOLUTE LYMPHOCYTES (AUTO) 2.3 10^3/uL (0.5-4.7); ABSOLUTE MONOCYTES (AUTO) 0.5 10^3/uL (0.1-1.4); ABSOLUTE NEUT (AUTO) 5.2 10^3/uL (1.7-8.2); BASOPHILS % (AUTO) 0.4 % (0-2); EOSINOPHILS % (AUTO) 0.9 % (0-6); HEMATOCRIT 37.9 % (36.0-47.0); HEMOGLOBIN 12.9 g/dL (12.0-15.5); LYMPHOCYTES % (AUTO) 28.5 % (13-45); MEAN CORPUSCULAR HEMOGLOBIN 32.9 pg (27.0-33.4); MEAN CORPUSCULAR VOLUME 97 fl (80-97); MONOCYTES % (AUTO) 6.3 % (3-13); PLATELET COUNT 257 10^3/uL (150-450); RED BLOOD COUNT 3.92 10^6/uL (3.72-5.28); RED CELL DISTRIBUTION WIDTH 13.4 % (11.5-14.0); SEGMENTED NEUTROPHILS % (AUTO) 63.9 % (42-78); TOTAL CELLS COUNTED % (AUTO) 100 %; WHITE BLOOD COUNT 8.2 10^3/uL (4.0-10.5)
[2020-07-21 18:05] LABS: ALBUMIN 4.4 g/dL (3.5-5.0); ALKALINE PHOSPHATASE 67 U/L (38-126); ANION GAP 6 (5-19); ASPARTATE AMINO TRANSFERASE 40 U/L (14-36); BILIRUBIN,DIRECT 0.1 mg/dL (0.0-0.4); BILIRUBIN,TOTAL 0.6 mg/dL (0.2-1.3); BLOOD UREA NITROGEN 14 mg/dL (7-20); CALCIUM 9.5 mg/dL (8.4-10.2); CARBON DIOXIDE 28 mmol/L (22-30); CHLORIDE 103 mmol/L (98-107); GLUCOSE 88 mg/dL (75-110); POTASSIUM 4.3 mmol/L (3.6-5.0); TOTAL PROTEIN 7.3 g/dL (6.3-8.2)
[2020-07-21] MEDS ORDERED: NITROGLYCERIN 0.4 MG/TAB 25 TAB/BOTTLE SL PRN (20:30)
--- NOTE | 2020-07-22 01:00 | ER Document Report ---
ED Cardiac - General Chief Complaint: Chest Pain Stated Complaint: CHEST PAIN Time Seen by Provider: 07/21/20 15:37 Mode of Arrival: Ambulatory Information source: Patient Notes: This 44-year-old woman presents to the emergency department with a complaint of chest pain. Apparently she has had a history of 3 stents in the past and a CAD history. She has seen the formulation chemist approximately 6 months ago with no change in her treatment. She does have sublingual nitroglycerin at home however , she did not take any for this episode of chest pain. She rates the pain a 5/10 with radiation of discomfort under her chin bilaterally. She denies diaphoresis, shortness of breath, nausea vomiting, or palpitations. TRAVEL OUTSIDE OF THE [place] IN LAST 30 DAYS: No - Related Data Allergies/Adverse Reactions: No Known Allergies Allergy (Verified 07/09/18 15:31) Past Medical History - Social History Smoking Status: Former Smoker Frequency of alcohol use: None Drug Abuse: None Family History: CAD, Hypertension - Parents. denies: CVA, DM, Malignancy Patient has homicidal ideation: No - Past Medical History Cardiac Medical History: Reports: Hx Coronary Artery Disease, Hx Hypercholesterolemia, Hx Hypertension Denies: Hx Heart Attack Pulmonary Medical History: Denies: Hx Asthma, Hx COPD Neurological Medical History: Denies: Hx Seizures Endocrine Medical History: Denies: Hx Diabetes Mellitus Type 1, Hx Diabetes Mellitus Type 2, Hx Hyperthyroidism, Hx Hypothyroidism Renal/ Medical History: Denies: Hx Peritoneal Dialysis GI Medical History: Denies: Hx Cirrhosis, Hx Crohn's Disease, Hx Hepatitis, Hx Ulcerative Colitis Musculoskeletal Medical History: Denies Hx Arthritis, Denies Hx Fibromyalgia Skin Medical History: Denies Hx Eczema, Denies Hx Psoriasis Infectious Medical History: Denies: Hx Hepatitis Past Surgical History: Reports: Hx Cardiac Catheterization, Hx Cardiac Surgery - x4 stents in 2018, Hx Section, Hx Coronary Stent - X4, Hx Hysterectomy Review of Systems - Review of Systems Notes: Constitutional: Negative for fever. HENT: Negative for sore throat. Eyes: Negative for visual changes. Cardiovascular: See HPI Respiratory: Negative for shortness of breath. Gastrointestinal: Negative for abdominal pain, vomiting or diarrhea. Genitourinary: Negative for dysuria. Musculoskeletal: Negative for back pain. Skin: Negative for rash. Neurological: Negative for headaches, weakness or numbness. 10 point ROS negative except as marked above and in HPI. Physical Exam - Vital signs Vitals: Temp Pulse Resp BP Pulse Ox 97.9 F 71 18 176/87 H 100 07/21/20 17:22 07/21/20 17:22 07/21/20 17:22 07/21/20 17:22 07/21/20 17:22 - Notes Notes: PHYSICAL EXAMINATION: Physical Exam: General: Well-nourished well-developed 44-year-old female mild distress secondary to chest pain HEENT: NC/AT, pupils equal round and reactive to light, MM moist,nares clear, oropharynx clear, airway patent Neck: supple, no adenopathy, no masses. Good range of motion Lungs: clear, no wheezing, no rales no rhonchi CVS: Regular rate and rhythm no murmur gallop or rub Abdomen: Soft, active, nontender, no masses, no hepatosplenomegaly Ext: No edema, clubbing or cyanosis. Neuro: Alert and responsive, moving all 4 extremities on command, cranial nerves intact, no focal findings Skin: Intact no open lesions, no rash Course - Re-evaluation Re-evalutation: 07/22/20 01:12 HEART Score: HEART score for chest pain patients Score History Moderately suspicious 1 ECG Normal 0 Age 45-65 year 1 Risk factors =3 risk factors or history of atherosclerotic disease 2 Troponin =normal limit 0 Total = 4 If HEART score is = 3 AND both tronponin measurments are normal, the 30 day risk of a major adverse cardiac event (all-cause mortality, myocardia infarction or need for coronary revscularization) is < 1% (Sensitivity 100%, NPV 100%). This patient has a known history of CAD with stenting x3 in the past. She has also had anginal episodes in the past, today she failed to use her nitroglycerin and presented to the emergency department where one sublingual nitroglycerin resolved the chest pain completely. 2 troponins were done approximately 5 hours apart both were at a less than 0.12. I discussed with the patient the findings and explained that she is being discharged home she can use the sublingual nitroglycerin as it had been prescribed by her formulation chemist. Also asked that she follow-up with the formulation chemist on Friday regarding this episode. She is also made cleanly aware that if your symptoms return and are unresponsive to the sublingual nitroglycerin x3 she should return to the emergency department for further evaluation and treatment. - Vital Signs Vital signs: Temp Pulse Resp BP Pulse Ox 97.9 F 71 14 171/95 H 99 07/21/20 17:22 07/21/20 17:22 07/21/20 22:01 07/21/20 22:01 07/21/20 22:01 - Laboratory Results Result Diagrams: 07/21/20 17:34 07/21/20 17:34 Laboratory Results Interpreted: 07/21/20 17:34 AST 40 H 07/22/20 01:04 I have reviewed laboratory data and used this information for the treatment decisions regarding the patient. Critical Laboratory Results Reviewed: No Critical Results - Radiology Results Radiology Results Interpreted: 07/22/20 01:04 Chest X-Ray 07/21/20 15:41 IMPRESSION: NO ACUTE RADIOGRAPHIC FINDING IN THE CHEST. Critical Radiology Results Reviewed: No Critical Results - EKG Interpretation by Me Rate: Normal - EKG interpreted by Dr. Blackburn: Normal sinus rhythm, rate 81, UT interval 140 ms QT interval 6 ms, normal axis, ELLIE, no acute ST or T wave abnormalities, no ischemic findings, compared to EKG dated 02/14/2020, no acute interval changes.. Interpretation abnormal EKG Discharge - Discharge Clinical Impression: Former smoker, Anginal pain Chest pain Qualifiers: Chest pain type: unspecified Qualified Code(s): R07.9 - Chest pain, unspecified Hypertension Qualifiers: Hypertension type: unspecified Qualified Code(s): I10 - Essential (primary) hypertension Condition: Good Disposition: HOME, SELF-CARE Instructions: Angina Episode ([facility]) Additional Instructions: You were seen in the emergency department tonight with an episode of chest pain which likely represented an anginal episode. You had been given instructions to use sublingual nitroglycerin for chest pain episodes. If your symptoms are recurrent or if they are worsening you may return to the emergency department for further evaluation and treatment Please follow-up with your formulation chemist, contact your office next week regarding the emergency visit and inquire if they feel you need to have further testing done. HOME CARE INSTRUCTIONS & INFORMATION: Thank you for choosing us for your medical needs. We hope you're satisfied with the care you received. After you leave, you must properly care for your problem and, at the same time, observe its progress. Any condition can change. Some illnesses can change rapidly over hours or days. If your condition worsens, return to the Emergency Department or see your physician promptly. ABOUT YOUR X-RAYS AND EKG'S: If you had an EKG or X-rays taken, they have been read by the Emergency Physician. The X-rays and EKG's will also be read by a Radiologist or Junior Net Developer within 24 hours. If discrepancies are noted, you will be notified by telephone. Please be certain the ED has a correct telephone number & address where you can be reached. Also, realize that some fractures or abnormalities do not show up on initial X-rays. If your symptoms continue, see your physician. ABOUT YOUR LABORATORY TEST: If you had laboratory tests, the results have been reviewed by the Emergency Physician. Some test results (for example cultures) may not be available for several days. You will be contacted if any test result shows you need additional treatment. Please be certain the ED has a correct telephone number and address where you can be reached. ABOUT YOUR MEDICATIONS: You will receive instructions on how to take your med icine on the prescription label you receive. Additional information may be provided by the Pharmacy. If you have questions afterwards, call the ED for clarification or further instructions. Some prescribed medications may cause drowsiness. Do not perform tasks such as driving a car or operating machinery without consulting your Pharmacist. If you feel you need a refill of pain medication, your condition will need re-evaluation. Please do not call for a refill of any medication. ABOUT YOUR SIGNATURE: Signature of this document acknowledges to followin. Understanding that you received emergency treatment and that you may be released before al medical problems are known or treated. Please be certain the ED has a correct phone number & address where you can be reached. 2. Acknowledgement that you will arrange for follow-up care as recommended. 3. Authorization for the Emergency Physician to provide information to your follow-up Physician in order to maximize your care. AT ANY TIME, IF YOUR SYMPTOMS CHANGE SIGNIFICANTLY OR WORSEN OR YOU DEVELOP NEW SYMPTOMS, RETURN TO THE EMERGENCY DEPARTMENT IMMEDIATELY FOR RE-EVALUATION. OUR GOAL IS TO PROVIDE EXCELLENT MEDICAL CARE! WE HOPE THAT WE HAVE MET YOUR EXPECTATIONS DURING YOUR EMERGENCY DEPARTMENT VISIT AND THAT YOU FEEL YOU HAVE RECEIVED EXCELLENT CARE!
[2020-07-22 01:34] VITALS: BP 184/108
--- NOTE | 2020-07-22 17:23 | EKG REPORT ---
SEVERITY:- ABNORMAL ECG - SINUS RHYTHM LEFT ATRIAL ABNORMALITY : Confirmed by: Brittny Roberts MD 22-Jul-2020 17:22:34
== END 2020-07-22 01:40 | disposition home or self-care (01) ==
LOC: ER 15:10
DX: R07.9 Chest pain, unspecified (principal); I10 Essential (primary) hypertension; I25.10 Atherosclerotic heart disease of native coronary artery without angina pectoris; Z87.891 Personal history of nicotine dependence
CPT/HCPCS: 36415; 71045; 80053; 84484; 85025; 93005; 93010; 99285